=== PATIENT | male | born 1970 | race Caucasian/White ===

== ENCOUNTER 2021-04-19 17:37 | Emergency (ER) | payer OTHER ==
[~2021-04-19] VITALS: Ht 180.3 cm; Wt 117.9 kg
--- NOTE | 2021-04-19 17:50 | NUR ---
DR. JOHN AT FOR [facility].
[2021-04-19] MEDS ORDERED: FLUT1BLS IH (17:56)
[2021-04-19] MEDS ORDERED: PRED20TA PO (17:56)
[2021-04-19] MEDS ORDERED: ALBU18HF2 INH (17:56)
[2021-04-19] MEDS ORDERED: IPRATROPIUM NEB FS 0.5 MG/2.5 ML AMPUL.NEB NEB ONE (18:00)
[2021-04-19] MEDS ORDERED: ALBUTEROL FS 2.5 MG/3 ML VIAL.NEB NEB ONE (18:00)
[2021-04-19] MEDS ORDERED: predniSONE 20 MG TABLET PO ONE (18:00)
[2021-04-19] MEDS ORDERED: IPRATROPIUM NEB FS 0.5 MG/2.5 ML AMPUL.NEB ONE (18:02)
[2021-04-19] MEDS ORDERED: ALBUTEROL FS 2.5 MG/3 ML VIAL.NEB ONE (18:02)
[2021-04-19] MEDS ORDERED: predniSONE 20 MG TABLET ONE (18:03)
--- NOTE | 2021-04-19 18:05 | NUR ---
c/o asthma attack, run out of breo, 99% on room air. PT AAOX4, DENIES CP, DIZZINESS, N/V AT THIS TIME. WILL CONT TO MONITOR.
--- NOTE | 2021-04-19 18:07 | NUR ---
PT GETTING BREATHING TX PER ERMD ORDER, PT CELENA WELL.
[2021-04-19 19:07] VITALS: BP 127/78
--- NOTE | 2021-04-19 19:07 | NUR ---
Patient discharged to home in stable condition. Written and verbal after care instructions given. Patient verbalizes understanding of instruction.
[2021-04-28] MEDS ORDERED: PRED50TA PO (03:10)
== END 2021-04-19 19:08 | disposition home or self-care (01) ==
LOC: ER 17:37
DX: R06.00 Dyspnea, unspecified (principal); J45.909 Unspecified asthma, uncomplicated; Z79.899 Other long term (current) drug therapy
CPT/HCPCS: 94640; 99283; J7512

== ENCOUNTER → 2021-04-28 | Emergency (ER) | payer OTHER ==
[~2021-04-28] VITALS: Ht 180.3 cm; Wt 98.4 kg
[~2021-04-28] MED LIST: ALBU18HF2 INH; ALBUTEROL FS 2.5 MG/0.5 ML VIAL.NEB ONE; ALBUTEROL FS 2.5 MG/3 ML VIAL.NEB ONE; DEXAMETHASONE SOD PHOSPHATE 10 MG/ML VIAL ONE; FLUT1BLS IH; IPRATROPIUM NEB FS 0.5 MG/2.5 ML AMPUL.NEB ONE; Magnesium 1GM/D5W 100ML PREMIX 100 ML IV ONE; PRED20TA PO; PRED50TA PO
[2021-04-28] MEDS: IPRATROPIUM NEB FS 0.5 MG/2.5 ML AMPUL.NEB NEB ONE ×2 (01:29→02:01)
[2021-04-28] MEDS: DEXAMETHASONE SOD PHOSPHATE 4 MG/ML VIAL IM ONE (01:32)
--- NOTE | 2021-04-28 01:33 | NUR ---
RT AT BED SIDE FOR BREATHING TX
[2021-04-28] MEDS: ALBUTEROL FS 2.5 MG/0.5 ML VIAL.NEB NEB ONE ×2 (01:35→02:01)
[2021-04-28] MEDS: Magnesium 1GM/D5W 100ML PREMIX 200 ML IV ONE (02:07)
[2021-04-28 03:59] VITALS: BP 147/69
--- NOTE | 2021-04-28 04:00 | NUR ---
Patient discharged to home in stable condition. Written and verbal after care instructions given. Patient verbalizes understanding of instruction.IV removed. Catheter intact and site benign. Pressure and 4x4 applied to site. No bleeding noted.
== END | disposition home or self-care (01) ==
LOC: ER 01:08
DX: J98.01 Acute bronchospasm (principal); Z79.899 Other long term (current) drug therapy
CPT/HCPCS: 94640 ×2; 96365; 96372; 99285; J1100; J3475